=== PATIENT | male | born 1965 | race Caucasian/White ===

== ENCOUNTER 2021-05-20 00:47 | Emergency (ER) | payer MEDICARE, OTHER ==
[~2021-05-20] VITALS: Ht 188 cm; Wt 76.2 kg
--- NOTE | 2021-05-20 00:54 | NUR ---
PT AAOX4. AMBULATORY WITH STEADY GAIT. [address]IBRA [address] C/O SI WITH PLAN TO JUMP IN FRONT OF A TRAIN. PLACED IN BED 14 ON MONITOR AND PULSE OX. PT PLACED IN A GOWN, BELONINGS PLACED IN LOCKER. URINE COLLECTED, SENT TO LAB.
[2021-05-20] MEDS ORDERED: diphenhydrAMINE HCL 50 MG/ML VIAL ONE (00:58)
[2021-05-20] MEDS ORDERED: diphenhydrAMINE HCL 50 MG/ML VIAL IM ONE (01:00)
--- NOTE | 2021-05-20 01:05 | NUR ---
INSURANCE CLERK AT BEDSIDE FOR BLOOD WORK.
[2021-05-20 01:10] LABS: HEMOGLOBIN 11.9 g/dL (13.5-17.5)
[2021-05-20 01:12] LABS: BILIRUBIN,URINE Negative (NEGATIVE); COLOR,URINE YELLOW (YELLOW); LEUKOCYTE ESTERASE ,URINE Negative (NEGATIVE); NITRITE, URINE Negative (NEGATIVE); PROTEIN,URINE Negative (NEGATIVE); UGLUCOSE Negative (NEGATIVE); UROBILINOGEN,URINE 0.2 EU/dL (0.2)
--- NOTE | 2021-05-20 01:13 | NUR ---
LOCID SWABBED, SENT TO LAB.
[2021-05-20 01:15] LABS: BASOPHILS % (AUTO) 0.3 % (0.0-2.0); EOSINOPHILS % (AUTO) 1.1 % (0.0-6.0); HEMATOCRIT 36 % (39-51); LYMPHOCYTES # (AUTO) 3.5 K/uL (0.8-4.8); LYMPHOCYTES % (AUTO) 28.3 % (20.0-44.0); MEAN CORPUSCULAR HGB CONC 33 g/dl (31.0-36.0); MEAN CORPUSCULAR VOLUME 83 fL (80-96); MONOCYTES # (AUTO) 1.1 K/uL (0.1-1.30); MONOCYTES % (AUTO) 8.9 % (2.0-12.0); NEUTROPHILS # (AUTO) 7.5 K/uL (1.8-8.9); NEUTROPHILS % (AUTO) 61.4 % (43.0-81.0); PLATELET COUNT (AUTO) 298 K/uL (150-450); RED BLOOD CELL COUNT(AUTO) 4.39 MIL/uL (4.5-6.0); WHITE BLOOD COUNT (AUTO) 12.2 K/uL (4.3-11.0)
[2021-05-20 01:23] LABS: CARBON DIOXIDE 30 mmol/L (21-32); CHLORIDE 102 mmol/L (98-107); CREATININE 0.8 mg/dL (0.6-1.3); GLUCOSE 103 mg/dL (74-106); SODIUM SERUM 137 mmol/L (136-145); UREA NITROGEN, BLOOD 20 mg/dL (7-18)
[2021-05-20 01:29] LABS: ALANINE AMINOTRANSFERASE 30 U/L (12-78); ALBUMIN 3.3 g/dL (3.4-5.0); ALCOHOL, BLOOD < 3 mg/dL (0-0); ALKALINE PHOSPHATASE 78 U/L (46-116); ASPARTATE AMINOTRANSFERASE 27 U/L (15-37); BILIRUBIN,DIRECT 0.1 mg/dL (0.0-0.2); BILIRUBIN,TOTAL 0.5 mg/dL (0.2-1.0); TOTAL PROTEIN, SERUM 6.9 g/dL (6.4-8.2)
[2021-05-20 01:31] LABS: ACETAMINOPHEN 0 ug/ml (10-30)
[2021-05-20 01:41] LABS: BACTERIA,URINE Few /HPF (None Seen); SQUAMOUS EPITHELIAL CELL,UR None Seen /HPF (None Seen); URINE AMORPHOUS PHOSPHATES Many /HPF (None Seen); WBC,URINE 0-2 /HPF (0-3)
--- NOTE | 2021-05-20 02:09 | NUR ---
FACE SHEET AND CLINICALS WERE FAXED OVER TO [facility]
--- NOTE | 2021-05-20 04:15 | NUR ---
FAXED UPDATED FACE SHEET TO [facility]
--- NOTE | 2021-05-20 04:19 | NUR ---
DERREK HSAFFER AT [facility] HAS RECEIVED THE FACE SHEET
--- NOTE | 2021-05-20 05:22 | NUR ---
PT GOT ACCEPTED AT [facility] BY DR BEAL # FOR REPORT: [phone] EX: [id number] [facility] ETA: [id number]
[2021-05-20 05:50] VITALS: BP 142/77
--- NOTE | 2021-05-20 06:34 | NUR ---
REPORT GIVEN TO SHELIA AT [facility]
--- NOTE | 2021-05-20 06:38 | NUR ---
[facility] AT BEDSIDE FOR PT TRANSPORT TO [facility]. REPORT GIVEN TO EMT
--- NOTE | 2021-05-20 06:40 | NUR ---
[facility] AT BED SIDE TO [employer] CONSULTANT THE PT
== END 2021-05-20 06:40 ==
LOC: ER 00:52
DX: R45.851 Suicidal ideations (principal); F15.10 Other stimulant abuse, uncomplicated; Z20.822 Contact with and (suspected) exposure to COVID-19; Z88.0 Allergy status to penicillin; Z88.8 Allergy status to other drugs, medicaments and biological substances; Z95.2 Presence of prosthetic heart valve
CPT/HCPCS: 36415; 80048; 80076; 80143; 80307; 80320; 81001; 85025; 87426; 96372; 99285; J1200; C9803; G0480

== ENCOUNTER 2021-08-25 01:44 | Emergency (ER) | payer OTHER ==
[~2021-08-25] VITALS: Ht 188 cm; Wt 76.2 kg
--- NOTE | 2021-08-25 01:52 | NUR ---
PATIENT BIBRA60 C/O "HAVING A SEIZURE" WAS TREATED FOR SEIZURE AND METH USE AT PONCE AND D/C'D AT 8PM. PATIENT IS A/O X 4, RR EVEN AND UNLABORED, NO SOB NOTED. PATIENT AMBULATES WITH STEADY GAIT. PATIENT TO ER BED 18. PATIENT PLACED IN HOSPITAL GOWN AND BELONGINGS TAKEN AND PLACED IN PATIENT LOCKER.
--- NOTE | 2021-08-25 01:53 | NUR ---
BAR TACKER AT PT'S BEDSIDE
[2021-08-25 02:04] LABS: BASOPHILS % (AUTO) 0.7 % (0.0-2.0); EOSINOPHILS % (AUTO) 2.5 % (0.0-6.0); HEMATOCRIT 37 % (39-51); HEMOGLOBIN 12.1 g/dL (13.5-17.5); LYMPHOCYTES % (AUTO) 34.3 % (20.0-44.0); MEAN CORPUSCULAR HGB CONC 33 g/dl (31.0-36.0); MEAN CORPUSCULAR VOLUME 80 fL (80-96); MONOCYTES # (AUTO) 0.8 K/uL (0.1-1.30); MONOCYTES % (AUTO) 13.3 % (2.0-12.0); NEUTROPHILS # (AUTO) 2.9 K/uL (1.8-8.9); NEUTROPHILS % (AUTO) 49.2 % (43.0-81.0); PLATELET COUNT (AUTO) 240 K/uL (150-450); RED BLOOD CELL COUNT(AUTO) 4.63 MIL/uL (4.5-6.0); WHITE BLOOD COUNT (AUTO) 5.9 K/uL (4.3-11.0)
[2021-08-25 02:55] LABS: ALANINE AMINOTRANSFERASE 44 U/L (12-78); ALBUMIN 3.3 g/dL (3.4-5.0); ALCOHOL, BLOOD < 3 mg/dL (0-0); ALKALINE PHOSPHATASE 79 U/L (46-116); ASPARTATE AMINOTRANSFERASE 39 U/L (15-37); BILIRUBIN,DIRECT 0.1 mg/dL (0.0-0.2); BILIRUBIN,TOTAL 0.4 mg/dL (0.2-1.0); CALCIUM, SERUM 8.4 mg/dL (8.5-10.1); CARBON DIOXIDE 27 mmol/L (21-32); CHLORIDE 106 mmol/L (98-107); GLUCOSE 84 mg/dL (74-106); POTASSIUM 3.7 mmol/L (3.5-5.1); SODIUM SERUM 139 mmol/L (136-145); TOTAL PROTEIN, SERUM 7.5 g/dL (6.4-8.2); UREA NITROGEN, BLOOD 21 mg/dL (7-18)
[2021-08-25 02:57] LABS: ACETAMINOPHEN 0 ug/ml (10-30)
--- NOTE | 2021-08-25 04:19 | NUR ---
OFFERED PT TOILETING. PT NOT ABLE TO GIVE URINE SAMPLE AT THIS TIME. WILL F/U AND TRY AGAIN LATER
[2021-08-25 06:19] LABS: BILIRUBIN,URINE NEGATIVE (NEGATIVE); COLOR,URINE YELLOW (YELLOW); LEUKOCYTE ESTERASE ,URINE NEGATIVE (NEGATIVE); NITRITE, URINE NEGATIVE (NEGATIVE); PROTEIN,URINE NEGATIVE (NEGATIVE); UGLUCOSE NEGATIVE (NEGATIVE); UROBILINOGEN,URINE 0.2 EU/dL (0.2)
--- NOTE | 2021-08-25 07:20 | NUR ---
FAXED CLINICALS AND FACE SHEET TO [facility]
[2021-08-25 09:30] VITALS: BP 128/76
[2021-08-25] MEDS ORDERED: LORAZEPAM INJ 2 MG/ML VIAL ONE (10:40)
[2021-08-25] MEDS ORDERED: LORAZEPAM 1 MG TABLET ONE (10:55)
[2021-08-25] MEDS ORDERED: LORAZEPAM INJ 2 MG/ML VIAL IM ONE (11:00)
[2021-08-25] MEDS ORDERED: LORAZEPAM 1 MG TABLET PO ONE (11:00)
--- NOTE | 2021-08-25 11:00 | NUR ---
ACCEPTED TO [facility] UNDER ALCON REYES. # REPORT [phone] PENDING TRANSPORT INFO
--- NOTE | 2021-08-25 12:20 | NUR ---
LUNCH PROVIDED TO PT
--- NOTE | 2021-08-25 13:36 | NUR ---
CALLED [facility] AND SET UP BLS TRANSPORT ETA [id number]
--- NOTE | 2021-08-25 13:50 | NUR ---
REPORT GIVEN TO NURSE GUNJAN FROM [facility]
--- NOTE | 2021-08-25 14:49 | NUR ---
TRANSPORTED TO [facility] IN STABLE CONDITION.
== END 2021-08-25 14:53 ==
LOC: ER 01:46
DX: R45.851 Suicidal ideations (principal); F19.10 Other psychoactive substance abuse, uncomplicated; F15.10 Other stimulant abuse, uncomplicated; I10 Essential (primary) hypertension; F31.9 Bipolar disorder, unspecified; F43.10 Post-traumatic stress disorder, unspecified; F41.9 Anxiety disorder, unspecified; Z88.0 Allergy status to penicillin; Z88.8 Allergy status to other drugs, medicaments and biological substances; Z59.00 Homelessness unspecified; Z86.69 Personal history of other diseases of the nervous system and sense organs; Z20.822 Contact with and (suspected) exposure to COVID-19
CPT/HCPCS: 36415; 80048; 80076; 80143; 80307; 80320; 81003; 85025; 87426; 99285; C9803; J2060; G0480